=== PATIENT | female | born 1950 | race Caucasian/White ===

== ENCOUNTER → 2019-01-15 | Outpatient (CLI) | payer MEDICARE ==
--- NOTE | 2019-01-18 15:51 | CRLMY ---
DATE OF SERVICE: 01/15/19 CLINICAL DATA: Encounter for screening mammogram for malignant neoplasm of breast BILATERAL MAMMOGRAMS: Comparison is made to a prior exam dated 01/18/17. There are scattered fibroglandular densities in both breasts. There is stable asymmetry. No significant changes from the prior exam. No evidence of malignancy. IMPRESSION: No evidence of malignancy. One year follow-up mammography is recommended. BI-RAD B: Mammogram - There are scattered areas of fibroglandular density. ACR 1 - Negative Mammogram. The exam was reviewed with R2 CAD. [id number] [facility]
== END ==
LOC: LB.CLINIC 08:58
PROVIDERS: ATTEND Nurse Practitioner Family
DX: Z12.31 Encounter for screening mammogram for malignant neoplasm of breast (principal); E78.5 Hyperlipidemia, unspecified
CPT/HCPCS: 36415; 77067; 80053; 80061

== ENCOUNTER → 2019-02-27 | Outpatient (CLI) | payer MEDICARE | LOC: LB.CLINIC 09:47 | PROVIDERS: ATTEND Nurse Practitioner Family | DX: I10 Essential (primary) hypertension (principal) | CPT/HCPCS: 36415; 82565; 84520 ==

== ENCOUNTER 2020-05-12 11:23 | Day surgery (SDC) | payer MEDICARE ==
[~2020-05-12 11:23] MED LIST: Metoclopramide 10 MG/2 ML SDV IV PRN; Sodium Chloride 0.9% 1,000 ML IV SCH
[2020-05-12] MEDS ORDERED: Propofol 1,000 MG/100 ML SDV ONE (15:45)
[2020-05-12 16:22] VITALS: BP 135/87; PULSE 63
--- NOTE | 2020-05-12 19:22 | OR ---
DATE OF OPERATION: 05/12/2020 SURGEON: Zbigniew Guthrie MD PREOPERATIVE DIAGNOSIS: Surveillance colonoscopy. POSTOPERATIVE DIAGNOSIS: Surveillance colonoscopy. PROCEDURE: Colonoscopy with polypectomy x2. ANESTHESIA: MAC. ESTIMATED BLOOD LOSS: Minimal. COMPLICATIONS: None. INDICATION FOR THE PROCEDURE: The patient is a 70-year-old female who is here for surveillance colonoscopy. Last scope was 5-6 years ago, was found to have polyps at that time. She otherwise denies any change in or any blood in the stool at all. DESCRIPTION OF PROCEDURE: Informed consent was obtained from the patient. The patient was taken to the operating room, placed on table in left lateral decubitus position. Monitored anesthesia care was administered. Digital rectal exam performed, it was normal. Colonoscope was then advanced through the anus, directed towards the cecum. Cecum was reached and identified by appendiceal orifice and the ileocecal valve. Colonoscope was then slowly withdrawn. She did have 2 small sessile polyps, 1 in the transverse colon, 1 in the descending colon, both removed by hot biopsy polypectomy. Remainder of the colon was otherwise unremarkable. FINDINGS: Colon polyps x2. Appearing benign. RECOMMENDATIONS: We would recommend repeat surveillance colonoscopy in 5 years. We will also follow up on biopsy results. ESTELLE/EFREM /[id number]
== END 2020-05-12 17:05 | disposition home or self-care (01) ==
LOC: LB.SDS 11:23
PROVIDERS: ATTEND Surgery
DX: D12.4 Benign neoplasm of descending colon (principal); D12.3 Benign neoplasm of transverse colon; I10 Essential (primary) hypertension; K21.9 Gastro-esophageal reflux disease without esophagitis; Z98.890 Other specified postprocedural states
CPT/HCPCS: J2704; J7030

== ENCOUNTER 2021-12-04 08:00 | Emergency (ER) | payer MEDICARE | END 2021-12-04 12:00 | disposition home or self-care (01) | LOC: LB.ED 08:00 | DX: E86.0 Dehydration (principal); R10.30 Lower abdominal pain, unspecified; R30.0 Dysuria | CPT/HCPCS: 81003; 99284 ==

== ENCOUNTER 2021-12-23 14:55 | Emergency (ER) | payer MEDICARE ==
[2021-12-23 16:30] VITALS: BP 172/82; PULSE 97
[2021-12-23] MEDS ORDERED: Nitrofurantoin Macrocrystal 50 MG Cap ONE (17:30)
== END 2021-12-23 17:35 | disposition home or self-care (01) ==
LOC: LB.ED 14:55 → SUPCPDRO 14:55 → LB.ED 17:35
DX: N39.0 Urinary tract infection, site not specified (principal); I10 Essential (primary) hypertension; E03.9 Hypothyroidism, unspecified; Z79.82 Long term (current) use of aspirin; Z79.899 Other long term (current) drug therapy
CPT/HCPCS: 81001; 87086; 99283; A9270